=== PATIENT | female | born 1970 | race Caucasian/White ===

== ENCOUNTER → 2021-09-03 10:45 | Outpatient (CLI) | payer OTHER, SELFPAY ==
--- NOTE | 2021-09-03 10:47 | DI.RAD.S_ITS ---
PROCEDURE: XR LUMBAR SPINE MIN 4V INDICATIONS: BACK PAIN TECHNIQUE: 5 views of the lumbar spine were acquired, including bilateral oblique views. COMPARISON: Outside [facility], MR, MR LUMBAR SPINE WO CON, 08/18/2020, 11:03. FINDINGS: Bones: 5 nonrib-bearing vertebrae are present. Minimal left convexity curvature centered at L3. 2-3 mm retrolisthesis L5 on S1, 2-3 mm anterolisthesis L4 on L5. Mild multilevel disc height loss and endplate spurring most pronounced at L5-S1. Moderate facet degenerative changes at L5-S1 and to a lesser extent L4-L5. For No vertebral body compression fractures. No suspicious bony lesions. Soft tissues: Overlying bowel gas pattern is normal. No suspicious soft tissue calcifications. An IUD projects over the pelvis. Oblique images: No pars defects identified. IMPRESSION: 1. No acute lumbar spine fracture visualized radiographically. 2. Mild-moderate multilevel degenerative changes of the lumbar spine. Dictated by: Anjel Rico M.D. on 09/03/2021 at 15:53 Approved by: Anjel Rico M.D. on 09/03/2021 at 15:57
== END ==
PROVIDERS: PCP Family Medicine; Referring Provider Physical Medicine & Rehabilitation; Visit Provider Physical Medicine & Rehabilitation
DX: M47.816 Spondylosis without myelopathy or radiculopathy, lumbar region (principal); M47.817 Spondylosis without myelopathy or radiculopathy, lumbosacral region; M54.9 Dorsalgia, unspecified
CPT/HCPCS: 72110

== ENCOUNTER → 2024-08-25 13:38 | Outpatient (CLI) | payer OTHER, SELFPAY ==
--- NOTE | 2024-08-25 13:41 | DI.RAD.S_ITS ---
PROCEDURE: XR LUMBAR SPINE 5V INDICATIONS: BACK PAIN TECHNIQUE: 5 views of the lumbar spine were acquired, including bilateral oblique views. COMPARISON: [facility], CR, XR LUMBAR SPINE MIN 4V, 09/03/2021, 10:45. FINDINGS: Bones: 5 nonrib-bearing vertebrae are present. There is normal bony alignment. No vertebral body compression fractures. Degenerative changes most notably at L4-5 and L5-S1 with facet osseous hypertrophic changes and mild disc space narrowing. Oblique images: No pars defects. IMPRESSION: Mild degenerative changes L4-5 and L5-S1. If symptoms persist or worsen, or there is high clinical suspicion of lumbar abnormality, MRI could be performed. Dictated by: Donal Mayorga M.D. on 08/25/2024 at 14:32 Approved by: Donal Mayorga M.D. on 08/25/2024 at 14:34
== END ==
PROVIDERS: PCP Family Medicine; Referring Provider Physical Medicine & Rehabilitation; Visit Provider Physical Medicine & Rehabilitation
DX: M54.9 Dorsalgia, unspecified (principal)
CPT/HCPCS: 72110